=== PATIENT | male | born 1975 | race African-American/Black ===

== ENCOUNTER 2020-09-12 16:59 | Emergency (ER) | payer BC, SELFPAY ==
[2020-09-12 17:15] VITALS: BP 148/88; PULSE 68; RESP 18; TEMP 35.7; O2SAT 100
--- NOTE | 2020-09-12 17:34 | ED.NAVMDI ---
HPI - Nausea/Vomiting/Diarrhea General Chief complaint: Nausea/Vomiting/Diarrhea Stated complaint: Throwing Up,Chills Time Seen by Provider: 09/12/20 17:30 Source: patient Mode of arrival: ambulatory Limitations: no limitations History of Present Illness HPI Narrative: Taqueria Khan is a 44 yo male with no PMH who was drinking last night and has been sick all day along with nausea and vomiting he is been unable to keep any fluids down; given Zofran here but has been told that if he continues to feel poorly or develops abdominal pain to go to the emergency room for fluid replacement Related Data Allergies Allergy/AdvReac Type Severity Reaction Status Date / Time No Known Allergies Allergy Verified 09/12/20 17:25 Review of Systems Review of Systems: Narrative: CONSTITUTIONAL: Denies fever, chills, sweats. Patient complaining of dizziness and being cold EYES: Denies visual changes, redness, discharge. ENT: Denies rhinorrhea, congestion, sore throat, otalgia. CARDIOVASCULAR: Denies chest pain, palpitations, edema. RESPIRATORY: Denies dyspnea, wheezing, cough GASTROINTESTINAL: Denies abdominal pain, has nausea, has vomiting, diarrhea. GENITOURINARY: Denies dysuria, hematuria, abnormal discharge SKIN: Denies rash or itching. NEUROLOGIC: Denies numbness, or focal weakness. PSYCHIATRIC: Denies anxiety or depression. PMFSH Past Medical History Medical History No acute medical problems Family History Family History Other No acute medical problems Social History Social History (Updated 09/12/20 @ 17:38 by Vero Morris CNP) Smoking status: Never smoker Alcohol intake: current Comments At time of signature, I agree with nursing past medical, surgical, social and family history. There is no relevant family history pertinent to the presenting complaint. Blood pressure elevated at this visit, may be dehydrated, follow-up with primary care physician Exam Narrative: Exam Narrative: GENERAL: This is a well-nourished, well-developed patient who is nauseated and weak after drinking all night. States is very nauseated when sits up HEAD: normocephalic, atraumatic. EYES: Sclera clear/white. Vision is grossly intact. EARS: External ears normal,. Hearing grossly intact. NOSE: External nose normal without nasal discharge, nares without redness, no rhinorrhea. THROAT: Mucous membranes moist, NECK: Neck supple, CARDIOVASCULAR: Regular rate and rhythm without murmurs, gallops, or rubs. RESPIRATORY: Clear to auscultation. Breath sounds equal bilaterally. No wheezes, rales, or rhonchi. GASTROINTESTINAL: Abdomen soft, non-tender, SKIN: warm, intact with no suspicious lesions or rash, good texture and turgor. NEURO: awake, eyes closed states is dizzy and oriented to person, place and time. There were no obvious focal neurologic abnormalities. Steady gait EXTREMITIES: Normal range of motion. BACK: Nontender without deformity Course Course Emergency Course: Patient comes to [facility] with complaints of nausea vomiting and dizziness is assumed to be due to drinking last night although blood pressure is mildly elevated at the clinic Blood Sugar is 96 Urine dipstick shows no ketones, 1 + proteun, rest is negative Patient given Zofran Patient given prescription for Zofran but discussed with both patient and his significant other that they must go to the emergency room for IV fluids and further evaluation if his status does not improve. He needs some fluid replenishment but he is neither open to going to the emergency room or taking more medication. He should be recovering if from alcohol intoxication and discussed this with both of them; if symptoms do not improve, should go to ER for further evaluation Vital Signs Vital signs: Vital Signs Temperature 96.3 F L 09/12/20 17:15 Pulse Rate 68 09/12/20 17:15 Respirato
[2020-09-12] MEDS: ONDANSETRON HCL ODT 4 MG TABLET PO (17:43)
== END 2020-09-12 17:55 | disposition home or self-care (01) ==
PROVIDERS: Emergency Provider Nurse Practitioner
DX: K21.9 Gastro-esophageal reflux disease without esophagitis (principal)
CPT/HCPCS: 81003; 82948; 99203; A9270; G0463